=== PATIENT | male | born 1995 | race Caucasian/White ===

== ENCOUNTER 2025-01-25 01:03 | Day surgery (SDC) | payer MEDICAID, SELFPAY ==
[2025-01-25] VITALS (23 sets, daily range): BP systolic 114–147; BP diastolic 63–96; PULSE 71–100; RESP 16–28; TEMP 35.7–37.1; O2SAT 91–98; BMI 28.9
--- NOTE | 2025-01-25 | US_ITS ---
Patient: TERESA COTA Facility:?[facility] Patient ID:?[id number] Site Patient ID:?[id number]. Site :?1995 Study:?US-Abdomen limited-01/25/2025 2:46:03 AM Ordering Physician:?ED Final Report: INDICATION: Right upper quadrant abdominal pain. TECHNIQUE: Ultrasound abdomen limited. Sonographic images of the right upper quadrant were obtained using flores-scale and color Doppler images. COMPARISON: None. FINDINGS: Liver: Normal in size and echotexture. No suspicious masses. No intrahepatic biliary ductal dilatation. Gallbladder: Multiple shadowing stones. Gallbladder wall thickening measuring 5 mm with mild pericholecystic fluid. Positive sonographic Santos`s sign. Common bile duct: 5 mm. Pancreas: Not visualized, obscured by bowel gas. Right kidney: Normal in size. Normal echotexture and cortex. No suspicious masses or hydronephrosis. Vasculature: Proximal abdominal aorta and IVC are unremarkable. Patent main portal vein with hepatopetal flow. IMPRESSION: Findings of cholecystitis. Dictated by Jerrod Dunham MD @ 01/25/2025 2:52:42 AM Signed by:?Jerrod Dunham MD @01/25/2025 2:52:42 AM (Electronic Signature)
[2025-01-25] MEDS: ONDANSETRON 2 MG/ML inj 4 MG IVP (01:45)
--- OUTSIDE RECORDS SUMMARY | 2025-01-25 03:28 | XMS_ITS | Clinical Summary ---
Author Organization [facility] Address [address] [place] [address] Care Team Providers Care Sports Official Name Role Phone Alex Patricia MD Primary Care Provider + [phone] Allergies Active AllergyReactionsCriticalityNoted DateCommentsMirtazapineOther - Describe In Comment Field10/11/2018 Vivid dreams, anxiety-inducing nightmares, fatigue QuetiapineGI Upset10/25/2020 Diarrhea, sweating, muscle aches, abdominal pain, flatulence Medications MedicationSigDispense QuantityRefillsLast FilledStart DateEnd DateStatus diphenhydrAMINE (BENADRYL) 25 mg tablet Take 25 mg by mouth.Active escitalopram oxalate (LEXAPRO) 10 mg tablet 1Active oxyCODONE-acetaminophen (PERCOCET) 5-325 mg per tablet Indications:Biliary colicTake 1 Tablet by mouth every 4 hours if needed for Pain. Max acetaminophen dose: 4000mg in 24 hrs. 6 Tablet 5Active ondansetron (ZOFRAN ODT) 4 mg disintegrating tablet Indications:Biliary colicPlace 1-2 Tablets (4-8 mg) on the tongue every 8 hours if needed for Nausea/Vomiting. 15 Tablet 5Active ibuprofen (ADVIL; MOTRIN) 600 mg tablet Indications:Biliary colicTake 1 Tablet (600 mg) by mouth every 6 hours if needed for Pain or Temp>101.5F (38.6C). Maximumof 3200 mg in 24 hours. 30 Tablet 5Active polyethylene glycoL (MIRALAX) 17 gram/scoop powder Indications:Acute abdominal painMix 1 scoop (17 g) in liquid then take by mouth once daily if needed for Constipation. 119 g 5Active dicyclomine (BENTYL) 10 mg capsule Indications:Acute abdominal painTake 1 Capsule (10 mg) by mouth every 6 hours if needed (abdominal cramping). 10 Capsule 5Active Active Problems ProblemNoted DateDiagnosed DateAutism spectrum oucajzpp21/11/2022Tinnitus of both ears1ASD04/08/2018Chronic ctdbfcuzizuk35/25/2019Insomnia, rzemyvhbki99/25/2019Depression, major, single episode, /14/2017 Allergic amtexqux82/03/2015 Overview (12/15/2014): Skin Prick Testing was performed on: 12/15/2014 Sensitive to: Cats, Dogs, Rabbits, Birch, Grass & Dust Mites Allergic ddfmuvbbvehqjo61/03/2015History of xtbbwyxtro12/05/2014 Overview (09/16/2013): Dad states child had chickenpox around age 3 years PLMD (periodic limb movement disorder) Encounters DateTypeDepartmentCare UhqiGezkmlusqle91/02/2025 3:04 AM VOCATIONAL TECHNICAL EDUCATION DIRECTOR - 01/13/2025 6:56 AM CSTEmer[facility] [address] [place] [address] Bebo Knott MD Biliary colic (Primary Dx); Acute abdominal pain Discharge Disposition: Home Self Care01/13/2025Travelfrom Last 3 Months Immunizations ImmunizationAdministration DatesNext DueCOVID-19 vaccine (Moderna 100mcg/0.5mL) PF, MDV1Covid-19 Vaccine (Unspecified)1DTP04/19/2000, 06/19/1996DTP-HIB1995,1995,1995DTaP04/19/2000,07/11/1996, 1995,1995,1995HIB PRP-T (ActHIB,Hiberix)07/11/1996,1995, 1995,1995HPV 9 (Gardasil 9)08/25/2016Hepatitis A (Peds)09/16/2013, 11/03/2010Hepatitis B (Peds)1995,1995,1995Hepatitis B, Wbbmplnfhwu86/01/1996,1995,1995Hib Conjugate, Acpziopflnt84/30/1997, 06/19/1996Human Papilloma Virus Cmwuakl0211/03/2010Inactivated Polio Vaccine 04/19/2000,1995,1995,1995Influenza A (H1N1), Inactivated 02/20/2009Influenza Virus, Vqyflrxgeto72/01/2021,06/13/2019Influenza, IIV3 (Age 6-35 mos)10/10/2010,11/29/2008Influenza, IIV3 (Age >=3 years)10/10/2010, 11/28/2009,12/27/1998,11/22/1998Influenza, CLJ999,12/19/2019,04/08/2018 MENINGOCOCCAL VACCINE 2 VIAL 2MO-55YO (MENVEO)09/16/2013,11/03/2010MMR04/19/2000 ,03/19/1996Oral Polio Vyhhxie4207/11/1995,1995Pneumococcal, Unspecified 06/13/2019Polio Virus, Vwyngnmkmbp80/08/3058Hsso70/22/2011Varicella Vaccine 03/19/1996 Family History Medical HistoryRelationNameCommentsAllergiesFatherSteveHyperlipidemiaFatherSteve Psychiatric illnessFatherSteveAllergiesMotherSusanHypertensionOther 1Grandfather HyperlipidemiaOther 2GrandfatherCancerOther 3Aunts, GrandmotherAllergiesOther 4 Cousins, Aunts, UnclesAlzheimer's diseasePaternal GrandfatherCancer-colonNo Family HistoryCancer-prostateNo Family HistoryRelationNameStatusCommentsFather SteveAliveMaternal GrandfatherAliveMaternal GrandmotherAliveMotherSusanAlive Other 1Other 2Other 3Other 4Paternal GrandfatherDeceasedSisterMargaretAlive Social History Tobacco UseTypesPacks/DayYears UsedDateSmoking Tobacco: NeverSmokeless Tobacco: Never Tobacco Cessation:Counseling Given: No Comments:mom smokes outside Alcohol UseStandard Drinks/WeekCommentsYes0 (1 standard drink = 0.6 oz pure alcohol)socially , maybe one drink in one monthPHQ-2AnswerDate RecordedPHQ-2 TOTAL GEIDH509ocial ConnectionsAnswerDate RecordedFrequency of Communication with Friends and FamilyNot on file02/12/2021Financial Resource StrainAnswerDate RecordedDifficulty of Paying Living ExpensesNot on file 02/12/2021ifficulty of Paying Living ExpensesNot on file02/12/2021Interpersonal SafetyAnswerDate RecordedAre you being hit, kicked, pushed or yelled at (see row info)?No01/13/2025Interpersonal Safety Abuse 12 - 18Not on file01/13/2025 Interpersonal Safety Ambulatory VulnerabilityNot on file01/13/2025Sex and Gender InformationValueDate RecordedSex Assigned at BirthNot on fileLegal SexMale 02/26/2012 7:36 AM CSTGender IdentityNot on fileSexual OrientationNot on file OccupationIndustryJob Start DateJob End DatestudentNot on fileNot on fileNot on fileTravel HistoryTravel StartTravel NktZbdmbjf14 Last Filed Vital Signs Vital SignReadingTime TakenCommentsBlood Ckptvkyx146/8301/13/2025 5:31 AM VOCATIONAL TECHNICAL EDUCATION DIRECTOR Rytgx926601/13/2025 5:31 AM WEKVihjxdtjlid37.3 ??C (97.4 ??F)01/13/2025 3:00 AM CSTRespiratory Uxhb695503/16/2024 3:00 AM CSTOxygen Ljcucgejny00%01/13/2025 5:31 AM CSTInhaled Oxygen Concentration--Owvecn57.2 kg (190 lb)01/13/2025 3:00 AM VOCATIONAL TECHNICAL EDUCATION DIRECTOR Gyvwyu283.7 cm (5' 8)01/13/2025 3:00 AM CSTBody Mass Index28.8901/13/2025 3:00 AM VOCATIONAL TECHNICAL EDUCATION DIRECTOR Plan of Treatment DateTypeDepartmentCare Team (Latest Contact Info)Wlauwcizxov51/17/2025 11:00 AM CSTOffice Visit [facility] [address] [place] [address] Farooq Marx MD [address] [place], [place] [id number] Health MaintenanceDue DateLast DoneCommentsDepression screening for age 12+ 2007HIV for age 15-65003/15/2010Hepatitis C screening for age 18-79 2013HPV series for age 9-45 (3 - Male 3-dose series), 11/03/2010Tetanus ekozbhf94/MI (ht and wt on same day) for age 18+/12/2021, 11/26/2020, 05/10/2020, Additional history existsCOVID- 19 vaccine series ( season)/07/2020, 12/18/2020, 06/03/2020Influenza Vaccine (#1)/, 11/12/2020, 12/19/2019, Additional history existsHepatitis B series for 19+Ebnlllkar96/01/1996, 1995, 1995, Additional history existsPneumococcal series for age 6-49Aged Out06/13/2019No longer eligible based on patient's age to complete this topic Procedures Procedure NamePriorityDate/TimeAssociated DiagnosisCommentsCT ABDOMEN PELVIS W STAT103/16/2024 5:11 AM VOCATIONAL TECHNICAL EDUCATION DIRECTOR UA W/ SEDIMENT EXAM REFLEXED PER GORNQNQQWWFN08/02/2025 4:17 AM VOCATIONAL TECHNICAL EDUCATION DIRECTOR PLTMRTHHCG88/02/2025 3:12 AM VOCATIONAL TECHNICAL EDUCATION DIRECTOR HEPATIC FUNCTION BHKLHVMEO48/02/2025 3:12 AM VOCATIONAL TECHNICAL EDUCATION DIRECTOR BASIC METABOLIC KQEMCQAYU31/02/2025 3:12 AM VOCATIONAL TECHNICAL EDUCATION DIRECTOR CBC W PLT NO VRXGJPOD77/02/2025 3:12 AM VOCATIONAL TECHNICAL EDUCATION DIRECTOR from Last 3 Months Results * CT ABDOMEN PELVIS W (01/13/2025 5:11 AM VOCATIONAL TECHNICAL EDUCATION DIRECTOR)Anatomical RegionLaterality ModalityAbdomen, Pelvis, AORTA, LIVER, SPLEENComputed TomographySpecimen (Source)Anatomical Location / LateralityCollection Method / VolumeCollection TimeReceived Time01/13/2025 5:11 AM VOCATIONAL TECHNICAL EDUCATION DIRECTOR Impressions 01/13/2025 5:22 AM VOCATIONAL TECHNICAL EDUCATION DIRECTOR 1. No definite acute findings to explain the patient's symptoms. Normal appendix. Narrative 01/13/2025 5:22 AM VOCATIONAL TECHNICAL EDUCATION DIRECTOR For Patients: As a result of the Cures Act, medical imaging exams and procedure reports are released immediately into your electronic medical record. You may view this report before your referring provider. If you have questions, please contact your health care provider. EXAM: CT ABDOMEN PELVIS W LOCATION: [facility] DATE: 01/13/2025 INDICATION: RLQ abdominal pain COMPARISON: None. TECHNIQUE: CT scan of the abdomen and pelvis was performed following injection of IV contrast. Multiplanar reformats were obtained. Dose reduction techniques were used. CONTRAST: IOHEXOL 350 MG IODINE/ML IV 500 ML BOTTLE: 98mL FINDINGS: LOWER CHEST: Normal. HEPATOBILIARY: No suspicious hepatic lesion. Cholelithiasis. No definite gallbladder inflammatory changes. PANCREAS: Normal. SPLEEN: Normal. ADRENAL GLANDS: Normal. KIDNEYS/BLADDER: No hydronephrosis or obstructive urolithiasis. BOWEL: Normal caliber. Normal appendix (, ). LYMPH NODES: Normal. VASCULATURE: Normal. PELVIC ORGANS: Normal. MUSCULOSKELETAL: Normal. Procedure Note Hernán Snyder MD - 01/13/2025 For Patients: As a result of the Cures Act, medical imagingexams and procedure reports are released immediately into your electronicmedical record. You may view this report before your referring provider.If you have questions, please contact your health care provider. EXAM: CT ABDOMEN PELVIS W LOCATION: [facility] DATE: 01/13/2025 INDICATION: RLQ abdominal pain COMPARISON: None. TECHNIQUE: CT scan of the abdomen and pelvis was performed followinginjection of IV contrast. Multiplanar reformats were obtained. Dosereduction techniques were used. CONTRAST: IOHEXOL 350 MG IODINE/ML IV 500 ML BOTTLE: 98mL FINDINGS: LOWER CHEST: Normal. HEPATOBILIARY: No suspicious hepatic lesion. Cholelithiasis. No definite gallbladder inflammatory changes. PANCREAS: Normal. SPLEEN: Normal. ADRENAL GLANDS: Normal. KIDNEYS/BLADDER: No hydronephrosis or obstructive urolithiasis. BOWEL: Normal caliber. Normal appendix (, ). LYMPH NODES: Normal. VASCULATURE: Normal. PELVIC ORGANS: Normal. MUSCULOSKELETAL: Normal. IMPRESSION: 1. No definite acute findings to explain the patient's symptoms. Normalappendix. Authorizing ProviderResult TypeResult StatusAlex Korey Knott MDCTFinal Result * (ABNORMAL) UA W/ SEDIMENT EXAM REFLEXED PER CRITERIA (01/13/2025 4:17 AM VOCATIONAL TECHNICAL EDUCATION DIRECTOR) ComponentValueRef RangeTest MethodAnalysis TimePerformed AtPathologist SignatureCOLORYellowYellow Color01/13/2025 4:21 AM [facility] LABORATORYCLARITYClearClear Auwbfjw4001/13/2025 4:21 AM [facility] LABORATORYSPECIFIC GRAVITY,URINE1.0251.010, 1.015, 1.020, 1.025 01/13/2025 4:21 AM [facility]ORATORYPH,URINE6.56.0, 7.0, 8.0, 5.5, 6.5, 7.5, 8. 4:21 AM [facility] LABORATORYUROBILINOGEN,QUALITATIVENormalNormal EU/dl01/13/2025 4:21 AM [facility] LABORATORYPROTEIN, URINENegativeNegative mg/dL01/13/2025 4:21 AM [facility] LABORATORYGLUCOSE, URINENegativeNegative mg/dL01/13/2025 4:21 AM [facility] LABORATORYKETONES,URINETrace(A)Negative mg/dL01/13/2025 4:21 AM [facility] LABORATORYBILIRUBIN,BZJWOZjhcbrgpTjjpatqm36/02/2025 4:21 AM [facility] LABORATORYOCCULT BLOOD,URINENegative Fpuggsnu03/02/2025 4:21 AM [facility] LABORATORYNITRITE JmadirnbMtigvrts13/02/2025 4:21 AM [facility] LEUKOCYTE MQJYTMCWFntbnobvVaslyhnt61/02/2025 4:21 AM [facility] LABORATORYSpecimen (Source)Anatomical Location / LateralityCollection Method / VolumeCollection TimeReceived TimeUrineURINE SPECIMEN / UnknownNon- Blood / Mlkwhwu2501/13/2025 4:17 AM CST01/13/2025 4:18 AM VOCATIONAL TECHNICAL EDUCATION DIRECTOR Narrative Authorizing ProviderResult TypeResult StatusAlex Korey Knott MDURINEFinal ResultPerforming OrganizationAddressCity/State/ZIP CodePhone Number [facility] INTERNAL ZIP [phone] [place] [address] * CBC W PLT NO DIFF (01/13/2025 3:12 AM VOCATIONAL TECHNICAL EDUCATION DIRECTOR)ComponentValueRef RangeTest Method Analysis TimePerformed AtPathologist SignatureWHITE BLOOD COUNT9.14.5 - 11.0 thou/cu mm01/13/2025 3:18 AM [facility] LABORATORYRED BLOOD COUNT5.474.30 - 5.90 mil/cu mm01/13/2025 3:18 AM [facility] JLUAEAPDKGDFCCHDRSLC74.613.5 - 17.5 g/dL01/13/2025 3:18 AM [facility] CGHVQTTWYGXNXUOHYOZA69.737.0 - 53.0 %01/13/2025 3:18 AM [facility] UUTPQCRFCAVMO0306 - 100 fL01/13/2025 3:18 AM [facility] SZKUQDMASHJCI78.526.0 - 34.0 pg 01/13/2025 3:18 AM [facility] TLWUSWUZSUMZET51.432.0 - 36.0 g/dL01/13/2025 3:18 AM [facility] RUOOPLVUDSCJL51.9 11.5 - 15.5 %01/13/2025 3:18 AM [facility] PLATELET NTKRE191089 - 440 thou/cu mm01/13/2025 3:18 AM [facility] AZCPGCOLRRBPV62.96.5 - 11.0 fL01/13/2025 3:18 AM [facility] LABORATORYNRBC0.0%01/13/2025 3:18 AM [facility] LABORATORYABS NRBC0.0thou /cu mm01/13/2025 3:18 AM [facility] LABORATORYSpecimen (Source)Anatomical Location / LateralityCollection Method / VolumeCollection TimeReceived TimeBloodBLOOD SPECIMEN / UnknownNon-Lab Venipuncture / Jdsamnu3501/13/2025 3:12 AM VOCATIONAL TECHNICAL EDUCATION DIRECTOR 01/13/2025 3:16 AM VOCATIONAL TECHNICAL EDUCATION DIRECTOR Narrative Authorizing ProviderResult TypeResult StatusAlex Korey Knott MDHEMATOLOGYFinal ResultPerforming OrganizationAddressCity/State/ZIP CodePhone Number [facility] INTERNAL ZIP [phone] [place] [phone] * LIPASE (01/13/2025 3:12 AM VOCATIONAL TECHNICAL EDUCATION DIRECTOR)ComponentValueRef RangeTest MethodAnalysis Time Performed AtPathologist SvrpetprbCGEXIC83.213.0 - 60.0 IU/L103/16/2024 3:56 AM [facility] LABORATORYSpecimen (Source)Anatomical Location / LateralityCollection Method / VolumeCollection TimeReceived Time BloodBLOOD SPECIMEN / UnknownNon-Lab Venipuncture / Eonzazs8001/13/2025 3:12 AM CST01/13/2025 3:16 AM VOCATIONAL TECHNICAL EDUCATION DIRECTOR Narrative Authorizing ProviderResult TypeResult StatusAlex Korey FLOREZHEMISTRYFinal ResultPerforming OrganizationAddressCity/State/ZIP CodePhone Number [facility] [place]NAL ZIP [phone] [place] [address] * HEPATIC FUNCTION PANEL (01/13/2025 3:12 AM VOCATIONAL TECHNICAL EDUCATION DIRECTOR)ComponentValueRef RangeTest MethodAnalysis TimePerformed AtPathologist SignatureALBUMIN4.74.0 - 4.9 g/dL 01/13/2025 4:05 AM [facility] LABORATORYPROTEIN,TOTAL7.5 6.0 - 8.0 g/dL01/13/2025 4:05 AM [facility] BILIRUBIN,TOTAL0.40.0 - 1.2 mg/dL01/13/2025 4:05 AM [facility] LABORATORYBILIRUBIN,DIRECT0.10.0 - 0.2 mg/dL01/13/2025 4:05 AM [facility] LABORATORYBILIRUBIN,INDIRECT0.30.2 - 0.8 mg/dL 01/13/2025 4:05 AM [facility] LABORATORYALK PHOSPHATASE 8840 - 129 IU/L103/16/2024 4:05 AM [facility] ALT (SGPT)2610 - 50 IU/L103/16/2024 4:05 AM [facility] LABORATORYAST (SGOT)2410 - 50 IU/L103/16/2024 4:05 AM [facility] LABORATORYSpecimen (Source)Anatomical Location / LateralityCollection Method / VolumeCollection TimeReceived TimeBloodBLOOD SPECIMEN / UnknownNon- Lab Venipuncture / Msxgsnz5601/13/2025 3:12 AM CST01/13/2025 3:16 AM VOCATIONAL TECHNICAL EDUCATION DIRECTOR Narrative Authorizing ProviderResult TypeResult StatusAlex Korey Knott MDCHEMISTRYFinal ResultPerforming OrganizationAddressCity/State/ZIP CodePhone Number [facility] [place]NAL ZIP [phone] [place] [address] * (ABNORMAL) BASIC METABOLIC PANEL (01/13/2025 3:12 AM VOCATIONAL TECHNICAL EDUCATION DIRECTOR)ComponentValueRef RangeTest MethodAnalysis TimePerformed AtPathologist VepbdcajiQITERZ841248 - 145 mmol/L103/16/2024 3:34 AM [facility] POTASSIUM4.13.5 - 5.1 mmol/L103/16/2024 3:34 AM [facility] QRQDNXVQSLUWZYWGOG29437 - 107 mmol/L103/16/2024 3:34 AM [facility] LABORATORYCO2,APVMA3637 - 29 mmol/L103/16/2024 3:34 AM [facility] LABORATORYANION PHT288 - 18103/16/2024 3:34 AM [facility] ZTTCRTQLPLLNUSNMM006(H)70 - 99 mg/dL 01/13/2025 3:34 AM [facility] LABORATORYCALCIUM9.38.8 - 10.4 mg/dL01/13/2025 3:34 AM [facility] Comment: Reference ranges for this test were updated on 12/18/2023 to reflect our healthy population more accurately. Reference range changes are not retroactively applied to results, but previous results using the same methodology can be interpreted in the context of the new reference range. YRD218 - 20 mg/dL01/13/2025 3:34 AM [facility] CREATININE0.950.70 - 1.20 mg/dL01/13/2025 3:34 AM [facility] LABORATORYBUN/CREAT XPBBN4222 - 3:34 AM [facility] LABORATORYeGFR>90>90 mL/min/1.69c00001/13/2025 3:34 AM [facility] LABORATORYComment:As of 04/26/2021, eGFR is calculated by the CKD-EPI creatinine equation without race adjustment. ??eGFR can be influenced by muscle mass, exercise, and diet. ??The reported eGFR is an estimation onlyand is only applicable if the renal function is stable.Specimen (Source)Anatomical Location / LateralityCollection Method / VolumeCollection TimeReceived TimeBloodBLOOD SPECIMEN / UnknownNon-Lab Venipuncture / Unknown 01/13/2025 3:12 AM CST01/13/2025 3:16 AM VOCATIONAL TECHNICAL EDUCATION DIRECTOR Narrative Authorizing ProviderResult TypeResult StatusAlex Korey Knott MDCHEMISTRYFinal ResultPerforming OrganizationAddressCity/State/ZIP CodePhone Number [facility] INTERNAL ZIP [phone] [place] [address] from Last 3 Months Insurance * Guarantor: Uday Lu GAccount TypeRelation to PatientDate of BirthPhone Billing AddressPersonal/AumckxSshs52/01/1996 [address] [place] [address] Care Teams Team MemberRelationshipSpecialtyStart DateEnd Date Alex Patricia MD [address] [facility] [address] [address] [place] [address] PCP - GeneralFamily Practice03/25/21
--- OUTSIDE RECORDS SUMMARY | 2025-01-25 03:28 | XMS_ITS | CCD ---
Author Name Interface, [id number] lity Address [address] [place] [address] [facility] Address [address] [place] [address] Reason for Visit Social History Date Name Value 10/11/2024 Sex Male
--- OUTSIDE RECORDS SUMMARY | 2025-01-25 03:28 | XMS_ITS | Clinical Summary ---
[facility] Address [address] [place] [address] Care Team Providers Care Building Components Designer Name Role Phone Needs Pcp, Assignment Primary Care Provider [phone] Source Comments You are receiving this document as you are listed as the primary care provider,follow-up provider, or the patient has been referred to you for consultation.This is in compliance with the Medicare and[facility] Centercaid EHR Incentive Program,which states Providers who transition their patient to another setting of careor provider of care or refers their patient to another provider of care shouldprovide summary care record for each transition of care or referral. [facility] Allergies Active AllergyReactionsCriticalityNoted DateCommentsDust Mite ExtractItching, Other, see comments,Respiratory KlbaxfasAjrm71/01/1996MirtazapineOther, see ramqsxxu66/30/2019 Vivid dreams, anxiety-inducing nightmares, fatigue JwhzSyrwzlo50/20/2019 walnuts QluuhStkgiAqcb40/15/2024 [place] trees, pollen, [place] Tree animal, Fur/Feathers animals AvxfcyekeoBwrfggusqwwdtkwk33/13/2021 Diarrhea, sweating, muscle aches, abdominal pain, flatulence Medications MedicationSigDispense QuantityRefillsLast FilledStart DateEnd DateStatus Cholecalciferol (VITAMIN D OR) Active folic acid 1 MG tablet Take 1 Tablet (1 mg) by mouth daily. 90 Tablet /ctive penicillin V potassium (PEN VK) 500 MG tablet Take 1 Tablet (500 mg) by mouth every 12 hours.5Active naproxen (NAPROSYN) 500 MG tablet Take 1 Tablet (500 mg) by mouth two times daily as needed.5Active pregabalin (LYRICA) 75 MG capsule Take 1 Capsule (75 mg) by mouth two times a day. 180 Capsule //715954/6Active escitalopram oxalate (LEXAPRO) 20 MG tablet Take 1 Tablet (20 mg) by mouth daily. 30 Tablet 5Active ARIPiprazole (ABILIFY) 5 MG tablet Take 1 Tablet (5 mg) by mouth daily. 30 Tablet 5Active Active Problems ProblemNoted DateDiagnosed DateFolate rcsrsriobm92/24/2025Iron deficiency 07/05/2024Elevated liver function tests07/05/2024Elevated C-reactive protein 07/05/20243076Zkiyxdrndqbd02/22/2025Depression, krbnppeinxf23/08/2025Pain disorder with related psychological pehetaa0605/20/2024Depression, major, single episode, ewdwfmhm79/14/2017Chronic pain xdsgikvj40/02/6255Cyhbiar97/01/1996Autism spectrum ovgfolzq12/01/4168Bykqnbtg02/01/1996 Resolved Problems ProblemNoted DateDiagnosed DateResolved DateHistory of fwwxcxegpr38/05/2014 06/27/2023 Overview (06/27/2023): Dad states child had chickenpox around age 3 years Encounters DateTypeDepartmentCare TiuhPbatorascwg59/13/2025 4:00 PM CDTTelemedicine [place] [address] [place] [address]. [place] [address] Dillon Agee MD Major depressive disorder, recurrent episode, moderate (HRC) (Primary Dx); BETO (generalized anxiety disorder) (HRC)10/28/2024Refill [place] [address] [place] [address]. [place] [address] Dillon Agee MD Refillfrom Last 3 Months Immunizations ImmunizationAdministration DatesNext Wro9kCCG (Gardasil)11/03/20109vHPV (Gardasil 9)06/26/2023,08/25/2016DTP04/19/2000,06/19/1996DTP-Hib (Tetramune) 1995,1995,1995DTaP04/19/2000,07/11/1996,1995,1995, 1995Flu Vac (3+ yrs)10/10/2010,11/28/2009,12/27/1998,11/22/1998Flu Vac Preserv Free (3+yrs)10/10/2010,11/29/20081352M9V9-Dqquwpcbvg36/09/2010HepA Ped/Adol (1-18 yrs)09/16/2013,11/03/2010HepB Ped/Adol (0-18 yrs)1995,1995, 1995HepB, Unspecified Pbyxkewqkdz76/01/1996,1995,1995Hib (ActHIB)07/11/1996,1995,1995,1995Hib, Unspecified Formulation 07/11/1996,06/19/1996IPV (Polio)04/19/2000,1995,1995,1995 Influenza IIV4 (Quadrivalent) 0.5mL (35288)11/26/2020,12/19/2019,04/08/2018 Influenza, Unspecified Zjhjkoepxhh74/01/2021,06/13/2019MCV4 Menveo 2m.+ (two vial)09/16/2013,11/03/2010MMR04/19/2000,03/19/1996Moderna Monovalent 12+ 12/18/2020,06/03/2020OPV, Trivalent (Orimune or tOPV)1995,1995PCV20 (Hmsyqfz95)4Pneumococcal, Unspecified Nxsnruxadxe95/01/2020Polio, Unspecified Jtpncsejwju11/08/0057Afrv78/14/2024,11/03/20109565Baklicscn94/05/1997, 1995 Family History Medical HistoryRelationNameCommentsBipolar DisorderBirth FatherAlalexsander's Paternal Grandfatherin late 80sCancer, ProstatePaternal Grandfatheraround 70s RelationNameStatusCommentsBirth FatherPaternal Grandfather Social History Tobacco UseTypesPacks/DayYears UsedDateSmoking Tobacco: VrnrhtChtnnpmvke13.9 Started: 03/15/20139601Retjyf84/19/2018 - 05/01/2017Smokeless Tobacco: Never Tobacco Cessation:Counseling Given: Not Answered Comments:I used to have a cigar once or twice a year. Alcohol UseStandard Drinks/WeekCommentsYes0 (1 standard drink = 0.6 oz pure alcohol)I only drink socially.PHQ-2AnswerDate RecordedPHQ-2 Hutrr198Sex and Gender InformationValueDate RecordedSex Assigned at BirthNot on fileLegal VgmVvqs34/10/2012 4:42 AM CDTGender IdentityNot on fileSexual OrientationNot on file Last Filed Vital Signs Vital SignReadingTime TakenCommentsBlood Ipsyqsqg668/6306 4:03 PM CDT Svexn476307/24/2023 4:03 PM CDTTemperature--Respiratory Rate--Oxygen Saturation-- Inhaled Oxygen Concentration--Wriyrg55.3 kg (166 lb)07/24/2023 4:03 PM CDTHeight 173.4 cm (5' 8.25)07/24/2023 4:03 PM CDTBody Mass Index25.0607/24/2023 4:03 PM CDT Plan of Treatment Health MaintenanceDue DateLast DoneCommentsCOVID-19 Vaccine ( season) /07/2020, 06/03/2020Influenza Vaccine (#1), 11/12/2020, 12/19/2019, Additional history existsAdult Preventive Visit /TaP/Tdap/Td Vaccine (8 - Tdap)/, 11/03/2010, 04/19/2000, Additional history existsZoster/Shingles Vaccine (1 of 2)2045HepB XxufebkRcfcqcaiv62/01/1996, 1995, 1995, Additional history existsHib JildcmiJckdjrdmp45/30/1997, 07/11/1996, 06/19/1996, Additional history existsIPV (Polio) PodtqhnQqtszobrm99/08/2001, 04/19/2000, 1995, Additional history existsHepA QmxrbgfYmvkhanme75/05/2014, 11/03/2010MCV4 Vaccine Vnvryzgtz87/05/2014, 11/03/2010HPV WrjhcuaUspklnysh06/14/2024, 08/25/2016, 11/03/2010Pneumococcal VaccineAged Out06/27/2023, 06/13/2019No longer eligible based on patient's age to complete this topicHIV Screening (Preventive Services) Hzeoksrlq72/22/2025Hep C Screening (Preventive Services)Draetsbeq36/22/2025 Meningococcal B VaccineAged OutNo longer eligible based on patient's age to complete this topic Procedures Procedure NamePriorityDate/TimeAssociated DiagnosisCommentsHIV 1/2 AG/AB 4TH GEN Qbnconx1507/03/2024 9:42 AM CDT Total body pain HEPATITIS C ANTIBODY, WITH REFLEX (ANTI-HCV)Djlyxna3607/03/2024 9:42 AM CDT Total body pain from Last 3 Months or Most Recently Relevant to Health Maintenance Results * HIV 1/2 Ag/Ab 4th Generation (07/03/2024 9:42 AM CDT)ComponentValueRef Range Test MethodAnalysis TimePerformed AtPathologist SignatureHIV 1/2 Antigen/Antibody (4th generation)Negative (Non Reactive)Negative (Non Reactive)07/03/2024 4:31 PM CDTMETHODIST LABORATORYComment:HIV-1 p24 Antigen and HIV-1/HIV-2 Antibody not detectedSpecimen (Source)Anatomical Location / LateralityCollection Method / VolumeCollection TimeReceived TimeBlood Venipuncture / Btpejde0107/03/2024 9:42 AM CDT07/03/2024 9:42 AM CDT Narrative Authorizing ProviderResult TypeResult StatusPaula Howie Willis MDLAB_1Final Result Performing OrganizationAddressCity/State/[facility] CodePhone Number [facility] [address] [place] [address] * Hepatitis C Antibody, with Reflex (07/03/2024 9:42 AM CDT)ComponentValueRef RangeTest MethodAnalysis TimePerformed AtPathologist SignatureHepatitis C AntibodyNegative (Non Reactive)Negative (Non Reactive)07/03/2024 4:31 PM CDT [facility]ORYComment:Antibodies to HCV not detected. Does not exclude the possiblity of exposure to HCV.Specimen (Source)Anatomical Location / LateralityCollection Method / VolumeCollection TimeReceived TimeBlood Venipuncture / Fkdzgqj9607/03/2024 9:42 AM CDT07/03/2024 9:42 AM CDT Narrative Authorizing ProviderResult TypeResult StatusPaula Howie Alba BARNETTLAB_1Final Result Performing OrganizationAddressCity/[facility] CodePhone Number [facility] [address] [place] [address] from Last 3 Months or Most Recently Relevant to Health Maintenance Insurance * Guarantor: Sabrina LU TypeRelation to PatientDate of BirthPhoneBilling AddressMVA/TPLMother [address] [place] [address] Care Teams Team MemberRelationshipSpecialtyStart DateEnd Date Needs Pcp, Jadon LL[place], [place] [id number] PCP - [facility]07/28/21
[2025-01-25 04:10] LABS: Appearance Urine Clear (Clear)
--- NOTE | 2025-01-25 04:39 | ED_ITS ---
HPI - Abdominal Pain General Time Seen by Provider: 01:15 Date Seen: 01/25/25 Chief Complaint: Abdominal Pain Stated Complaint: gallstones Source: patient Mode of arrival: ambulatory History of Present Illness HPI narrative: Uday is a previously healthy 29-year-old male who presents to the emergency department for evaluation of abdominal pain. Patient reports that approximately 1-2 weeks ago he was seen at outside hospital and had a CT scan of his abdomen which demonstrated gallstones. Patient states he is scheduled to follow-up with surgery for consultation on 01/28/2025. Patient reports that last night around 1900 he had severe right upper quadrant abdominal pain with worsening pain since then. Patient describes the pain as a severe sharp pain in his right upper abdomen that goes to his back. Patient reports nausea but denies any vomiting, fever, chills. Patient denies any chest pain, cough, shortness of breath. Patient took 1 tablet of oxycodone at home which he was prescribed at his last visit for biliary colic. Patient denies any dysuria, hematuria, no other complaints. Related Data Allergies Allergy/AdvReac Type Severity Reaction Status Date / Time No Known Drug Allergies Allergy Verified 01/25/25 03:23 Review of Systems Narrative Past medical history, past surgical history, medications, allergies, family history, and social history were reviewed with the patient. No additional pertinent items. A medically appropriate review of systems was performed with pertinent positives and negatives noted in HPI, all other systems negative. [facility] Social History Smoking Status: Smoker, status unknown How often do you have a drink containing alcohol: 2-3 times a week How many standard drinks containing alcohol do you have on a typical day: 3 or 4 How often do you have six or more drinks on one occasion: Less than monthly AUDIT-C Alcohol total score: 5 Non-prescribed substance use: marijuana (any form) service: No Exam Narrative: Exam Narrative: General: Afebrile, in distress secondary to severe pain, nausea HEENT: Normocephalic, atraumatic, conjunctiva normal. MMM Neck: non-tender, supple Cardio: regular rate. regular rhythm Resp: Normal work of breathing, no respiratory distress, lungs clear bilaterally, no wheezing, rhonchi, rales Chest/Back: no visual signs of trauma, no midline tenderness, no CVA tenderness Abdomen: soft, non distension, diffuse tenderness to palpation, mostly tender in right upper quadrant, positive Santos sign, no peritoneal signs Neuro: alert and fully oriented. CN II-XII grossly intact. Grossly normal strength and sensation in all extremities. MSK: no deformities. Normal range of motion Integumentary/Skin: no rash visualized, normal color Psych: normal affect, normal behavior Const: Vital Signs, click to edit/add: Vital Signs - 24 hr 01/25/25 03:20 Temperature 98.8 F Pulse Rate [Right Pulse Oximeter] 98 Respiratory Rate 28 H Blood Pressure [Ri ght Upper Arm] 135/96 H Pulse Oximetry 98 Oxygen Delivery Me thod Room Air Course Vital Signs Vital signs: Initial Vital Signs Temperature 98.8 F 01/25/25 03:20 Temperature Source Temporal Artery Scan 01/25/25 03:20 Pulse Rate 98 01/25/25 03:20 Pulse Rhythm Regular 01/25/25 03:20 Pulse Strength 3+ Normal 01/25/25 03:20 Respiratory Rate 28 H 01/25/25 03:20 Blood Pressure 135/96 H 01/25/25 03:20 Blood Pressure Mean 109 H 01/25/25 03:20 Blood Pressure Position Supine 01/25/25 03:20 Pulse Oximetry 98 01/25/25 03:20 Oxygen Delivery Method Room Air 01/25/25 03:20 Vital Signs Temperature 98.8 F 01/25/25 03:20 Pulse Rate 98 01/25/25 03:20 Respiratory Rate 28 H 01/25/25 03:20 Blood Pressure 135/96 H 01/25/25 03:20 Pulse Oximetry 98 01/25/25 03:20 Oxygen Delivery Method Room Air 01/25/25 03:20 Temperature 98.8 F 01/25/25 03:20 Pulse Rate 98 01/25/25 03:20 Respiratory Rate 28 H 01/25/25 03:20 Blood Pressure 135/96 H 01/25/25 03:20 Pulse Oximetry 98 01/25/25 03:20 Oxygen Delivery Method Room Air 01/25/25 03:20 MDM - Abdominal Pain MDM Narrative Medical decision making narrative: Uday is a previously healthy 29-year-old male who presents to the emergency department for evaluation of abdominal pain. Upon arrival patient is nontoxic appearing, afebrile, in distress secondary to pain. Patient is slightly hypertensive 135/96, heart rate 98, oxygen 98% on room air. Patient is afebrile, abdomen is soft, nondistended however there is diffuse tenderness to palpation mostly in his right upper abdomen. Differential diagnosis includes but is not limited to acute cholecystitis versus biliary colic versus pancreatitis versus gastritis versus appendicitis among others. Upon arrival patient was treated with IV Zofran, Toradol, Dilaudid, comprehensive labs and right upper quadrant ultrasound performed. Comprehensive labs remarkable for white blood cell count of 10.6, hemoglobin 15.6, no acute metabolic electrolyte abnormality, no transaminitis, normal bilirubin, normal lipase. Right upper quadrant ultrasound demonstrating signs of acute cholecystitis. Gallbladder with multiple shadow stones, wall thickening 5 mm with mild pericholecystic fluid, positive Santos sign. Patient with ongoing pain and was treated with additional doses of IV Dilaudid. I discussed patient management with surgeon Dr. Ramirez who agrees with surgical intervention the morning. At this time will keep patient NPO, maintenance IV fluids, pain control. Plan on antibiotics prior to surgery. Discussed results and plan with patient who agrees with the plan. Final diagnosis: Acute cholecystitis Right upper quadrant abdominal pain Nausea Medical Records Attestation: I reviewed the patient's medical records. Lab Data Attestation: I reviewed the patient's lab results. Labs: Lab Results 01/25/25 Range/Units 03:56 Urine Color Yellow (Yellow) Urine Appearance Clear (Clear) Urine pH 7.0 (5.0-8.5) Ur Specific [place] 1.020 (1.000-1.030) Urine Protein Negative (Negative) Urine Glucose (UA) Negative (Negative) Urine Ketones Negative (Negative) Urine Blood Negative (Negative) Urine Nitrite Negative (Negative) Urine Bilirubin Negative (Negative) Urine Urobilinogen 0.2 (0.2-1.0) Ur Leukocyte Esterase Negative (Negative) Urine RBC 0-2 (0-2) Urine WBC 0-2 (0-5) Ur Squamous Epith Cells None (None-Few) Urine Bacteria None (None) Discharge Plan Discharge Clinical Impression: Acute cholecystitis, Abdominal pain, RUQ Patient Disposition: XFER to OR Condition: Stable Follow Up/Referrals: Provider,Not a Local [Primary Care Provider, Family Practice]
[2025-01-25 04:51] LABS: Hematocrit* 45.7 % (37.0-53.0); Hemoglobin* 15.6 gm/dL (13.5-17.5); Lymphocytes Absolute Auto 1.50 K/uL (0.90-2.90); Mean Corpuscular HGB Conc 34 gm/dL (32-36); Mean Corpuscular Hemoglobin 29 pg (26-34); Mean Corpuscular Volume 83 fL (80-100); Red Blood Count* 5.48 m/uL (4.30-5.90); Slide Review Reflex No; White Blood Count* 10.63 K/uL (4.50-11.00)
[2025-01-25 04:52] LABS: Anion Gap 9 mEq/L (7-15); Blood Urea Nitrogen* 9 mg/dL (5-24); Carbon Dioxide* 27 mmol/L (20-32); Chloride* 99 mmol/L (96-114); Creatinine* 0.8 mg/dL (0.5-1.5); Est. Creatinine Clearance* 131.81; Estimated Glomerular Filt Rate 123 ml/min; Potassium* 3.8 mmol/L (3.6-5.1); Sodium* 137 mmol/L (135-149)
[2025-01-25 04:53] LABS: Alanine Aminotransferase* 30 U/L (4-50); Albumin* 4.5 g/dL (3.3-5.0); Alkaline Phosphatase* 94 U/L (40-150); Aspartate Amino Transferase* 27 U/L (12-35); Bilirubin Total* 0.7 mg/dL (0.1-1.5); Calcium* 8.7 mg/dL (8.4-10.6); Glucose* 127 mg/dL (60-115); Total Protein* 7.5 g/dL (6.0-8.3)
[2025-01-25] MEDS: ACETAMINOPHEN 500 MG TABLET 1000 MG PO (05:47)
--- NOTE | 2025-01-25 08:27 | PM.GSHP ---
History of Present Illness History of Present Illness Date Seen: 01/25/25 Chief complaint: gallstones Narrative: Uday Lu is a 29 year old male presented to emergency room with right-sided and epigastric abdominal pain. Patient states that the pain initially started about 10 days ago. He was seen at an outside hospital in the emergency room. He had an abdominal CT that showed ?gallstones? and he had stool retention. Patient has been having multiple loose bowel movements every day. Pain medication improved his pain and patient was discharged. Patient then states that 2 days later he had another milder episode of pain that was in the right upper quadrant and epigastrium. That pain improved with pain medication and rest. And last night he developed another episode of pain while he was visiting his girlfriend in [place]. Patient then presented to emergency room. The pain was described as ?pressure?. In the upper abdomen and radiating to his midback and localized more to the right side. Patient had nausea but no vomiting. I personally reviewed his workup in the emergency room. He was found to have normal WBC. [facility] liver function tests were normal. An abdominal ultrasound was obtained that showed cholelithiasis, gallbladder wall of 5 mm, the common bile duct was 5 mm. Review of Systems Narrative: General: no fevers HENT: no problems swallowing CV: no shortness of breath Resp: no cough GI: No nausea, vomiting, abdominal pain : no dysuria, no increased urinary frequency, no hematuria Skin: no new rashes Musculoskeletal: no back pain Neuro: no muscle weakness Psyche: no depression, no anxiety PFSH PFS Surgical History (Updated 01/25/25 @ 08:30 by Evgeny Ramirez MD) H/O eye surgery ?Z98.890 - Other specified postprocedural states (ICD-10) Social History (Updated 01/25/25 @ 08:31 by Evgeny Ramirez MD) Narrative: Patient smokes marijuana, drinks alcohol. 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 Smoking Status: Smoker, status unknown How often do you have a drink containing alcohol: 2-3 times a week How many standard drinks containing alcohol do you have on a typical day: 3 or 4 How often do you have six or more drinks on one occasion: Less than monthly AUDIT-C Alcohol total score: 5 Non-prescribed substance use: marijuana (any form) service: No Meds Home Medications and Allergies Home Medications ?Medication ?Instructions ?Recorded ?Confirmed ?Type amoxicillin 875 mg-potassium 1 tab PO BID #14 tabs 01/25/25 Rx clavulanate 125 mg tablet oxycodone-acetaminophen 5 mg-325 1 - 2 tab PO Q6H PRN pain #25 tabs 01/25/25 Rx mg tablet Allergies Allergy/AdvReac Type Severity Reaction Status Date / Time No Known Drug Allergies Allergy Verified 01/25/25 03:23 Exam Narrative: Exam Narrative: General appearance: Alert, cooperative, and in no distress Pulmonary: Chest symmetric, lungs clear bilaterally Cardiovascular Heart: Regular rate and rhythm, S1, S2, no murmurs/rubs/gallops Gastrointestinal Abdominal: soft, not distended, there is a small umbilical hernia palpated on the right superior aspect of the umbilicus, patient had tenderness to palpation in the right upper quadrant with positive Santos sign. Skin: Normal skin color, texture, and turgor. No rashes or lesions. Psychiatric: Alert, cooperative, normal affect. Const: Vital Signs, click to edit/add: Vital Signs - 24 hr 01/25/25 03:20 01/25/25 04:30 01/25/25 05:00 Temperature 98.8 F Pulse Rate 72 84 Pulse Rate [Right Pulse Oximeter] 98 Respiratory Rate 28 H 22 19 Blood Pressure Blood Pressure [Ri ght Upper Arm] 135/96 H Pulse Oximetry 98 94 94 Oxygen Delivery Me thod Room Air 01/25/25 05:21 Temperature 98.3 F Pulse Rate 71 Pulse Rate [Right Pulse Oximeter] Respiratory Rate 21 Blood Pressure 146/90 H Blood Pressure [Ri ght Upper Arm] Pulse Oximetry 95 Oxygen Delivery Me thod Progress Note:A&P Assessment and plan (1) Acute cholecystitis: Status: Acute Assessment and Plan: 29-year-old male presented to emergency room with right upper quadrant pain due to acute cholecystitis. I discussed with the patient and his father my clinical findings. Patient's white count is normal but he has evidence of acute cholecystitis on ultrasound. Patient also has positive Santos sign. I recommended to proceed with laparoscopic cholecystectomy. The procedure was discussed in detail. The risks associated procedure including infection, bleeding, injury to intra-abdominal organs, and injury to the common bile duct were all discussed with the patient, and he agreed to proceed.
[2025-01-25] MEDS: PIPERACILLIN/TAZOBACTAM 3.375 GM in 0.9 % SODIUM CHLORIDE Mini-bag 100 ML IVPB (08:35)
--- NOTE | 2025-01-25 11:06 | P.ANES_ITS ---
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
--- NOTE | 2025-01-25 11:06 | W.ANESCHARGE ---
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
--- NOTE | 2025-01-25 11:11 | P.GSOP_ITS ---
Operative Note Date of procedure: 01/25/25 Pre-op diagnosis: 1. Acute cholecystitis. Post-op diagnosis: 1. Acute cholecystitis, suspicious for purulent cholecystitis. Type of Procedure: 1. Laparoscopic cholecystectomy. Indications: 29-year-old male presented to emergency room with recurrent episodes of right upper quadrant pain. Patient's pain first started about 10 days ago when he was seen in the emergency room at the outside hospital. He was told that he has cholelithiasis and follow-up with surgery was recommended. Patient had another milder episode a couple days after that visit. Then last night patient developed severe episode of pain in the right upper quadrant. The pain was described as pressure and was radiating to his back and the right side of his abdomen. Patient had nausea but no vomiting. He was having loose stools. Upon his workup in the emergency room he was found to have normal WBC. Liver function tests were normal. A gallbladder ultrasound was obtained that showed cholelithiasis, gallbladder wall thickening to 5 mm, his common bile duct was normal in size. On clinical exam patient had tenderness to palpation in the right upper quadrant with positive Santos sign. Given patient's ultrasound findings and his clinical exam as well as his clinical picture, acute cholecystitis was suspected, and laparoscopic cholecystectomy was recommended. The procedure was discussed in detail. The risks associated procedure including infection, bleeding, injury to intra-abdominal organs, injury to the common bile duct, and the need for additional procedures were all discussed with the patient, and he agreed to proceed. Procedure Description: After discussing the risks and benefits of the procedure, the patient signed informed consent.? The operative site was marked and the patient was brought to the operating room and placed on the operating table in supine position.? Care was taken to pad the patient's pressure points.?? The patient was then intubated by anesthesia.?? The operative site was then prepped and draped in the usual sterile fashion.? A time-out was then performed. A 5-mm laparoscopy port was placed in the left upper quadrant guided by a 5-mm laparoscope placed into a translucent trochar.~ Passage through the layers of the abdominal wall was visualized with the laparoscope.~ A pneumoperitoneum was established. A 0-degree 5-mm laparoscope was advanced into the abdomen. The abdomen was briefly surveyed, and no adhesions were noted. A 10-mm port were placed supraumbilically through patient's small umbilical hernia defect. And two more 5 mm ports were placed on the right under direct visualization by laparoscope. The camera was then changed to 10 mm 30-degree scope and placed into the abdomen through the 10 mm port. The left upper quadrant port entrance was examined and no injury to intra-abdominal organs was identified. The gallbladder was identified, and was taught and inflamed. I was not able to grasp the gallbladder. Laparoscopic needle was then inserted into the gallbladder and 50 mL of light green cloudy bile was suctioned. This was sent to microbiology for culture. The gallbladder was then grasped and retracted cephalad. The infundibulum was grasped and retracted laterally, exposing the peritoneum overlying the triangle of Calot. Omentum was covering the anterior portion of the gallbladder, and these adhesions were taken down with hook cautery. The peritoneum overlying the infundibulum and triangle of Calot was then divided and exposed in a blunt fashion and with hook cautery. The surface of the gallbladder was friable and moderate amount of edema was noted in the gallbladder wall. Common bile duct was not identified but care was taken not to injure it. The node of Calot was identified and bleeding was noted from this node. This was controlled with 5 mm clips and hook cautery. I then identified cystic artery just posterior to the node of Calot. This was circumferentially dissected bluntly and with hook cautery. Multiple small venous and arterial branches were noted to course from the cystic artery to the gallbladder infundibulum. These were carefully dissected circumferentially prior to dividing them was cautery. Some of the larger branches were controlled with vascular clips near the artery to prevent bleeding. The cystic artery was clearly going into the gallbladder. The cystic duct was also circumferentially dissected with cautery and bluntly. The cystic duct was then doubly ligated with surgical clips on the patient's side and singly clipped on the gallbladder side and divided. The cystic artery was then similarly ligated with clips and divided as well. The gallbladder was dissected from the liver bed in retrograde fashion using hookcautery. At the lateral edge of the gallbladder fossa a small arterial branch was noted to be bleeding. This was controlled with vascular clips. During this dissection moderate amount of edema was seen in the gallbladder wall. When the gallbladder was removed from the gallbladder fossa, it was placed into an Endo-Catch bag. The supraumbilical incisional fascia had to be enlarged with cautery to accommodate removal of the gallbladder. The gallbladder was then removed from the abdomen. Surgical site was examined for bleeding. No bleeding was seen in the surgical field. Walter was sprayed in the gallbladder fossa. The fascia of the supraumbilical incision was then closed with running 0-0 vicryl suture. This closure was examined intra-abdominally, and no intra- abdominal structures were incarcerated in the closure. Pneumoperitoneum was completely reduced after viewing removal of the trocars under direct vision. The skin was then closed with 4-0 monocryl and steristrips were applied. Sterile gauze was placed over the umbilical incision. Instrument, sponge, and needle counts were correct at closure and at the conclusion of the case. The patient was transferred to PACU in stable condition. Findings: Acute cholecystitis, suctioned bile was cloudy suggestive of purulent cholecystitis. Anesthesia: GETA Surgeon: Evgeny Ramirez MD Estimated blood loss (mL): 25 Specimen: Gallbladder Condition: stable Disposition: PACU
[2025-01-25] MEDS: METOCLOPRAMIDE HCL 5 MG/ML INJ 10 MG IVP (11:40)
--- NOTE | 2025-01-25 14:32 | PC.NURSE ---
Addendum entered by Priyanka Meza RN 01/25/25 14:44: patient up independently in room, tolerated full liquid diet, denied nausea or pain after eating. Up to BR after surgery, voided. Patient requested D/C 30min after eating. Encouraged to use wheelchair however patient ambulated to car with father present. Original Note: Pt a/o x4, pleasant and cooperative with cares. Upon assessment lung sounds clear, bowel sounds active. Pt reported pain 1/10, managed with Ice pack to surgical site. Surgical site, clean dry and intact. IV removed with cath tip intact. Pt given both written and verbal discharged education. No concerns from pt at time of discharge. pt ambulated out of facility accompanied by father.
== END 2025-01-25 14:23 | disposition home or self-care (01) ==
LOC: ED 07:30 → SS 08:02 → MEDSURG 11:59
PROVIDERS: Emergency Provider Emergency Medicine; Visit Provider Surgery
PROC: 0FT44ZZ Resection of Gallbladder, Percutaneous Endoscopic Approach (ICD-10-PCS; CPT 47562; principal; 2025-01-25 08:00)
DX: K80.00 Calculus of gallbladder with acute cholecystitis without obstruction (principal)
CPT/HCPCS: 47562; 00790; 36415; 76705; 80053; 81001; 83690; 85025; 87070; 87075; 87205; 94761; 99285; A9270; J1100; J1171; J1885; J2250; J2371; J2405; J2543; J2704; J2710; J2765; J3010; J3490; J7030